=== PATIENT | female | born 1960 | race Caucasian/White ===

== ENCOUNTER 2019-09-04 09:40 | Outpatient (CLI) | payer OTHER, SELFPAY ==
--- NOTE | 2019-09-04 09:46 | EST_ITS ---
Patient Info Name: Adelaide Corrales Age: 59 years : 1960 Gender: Female Ht: 62 in Wt: 202 lbs BSA: 2.05 m2 Exam Date: 09/04/2019 10:10 AM Exam Location: [facility] Stress Patient Status: Outpatient Admit Date: 09/04/2019 Staff Ordering Physician: Govind Monreal MD Attending Provider: Govind Monreal MD Exercise Technologist: Duane Dodson RDCS, RT Exercise Physician: Angelo Huynh DO Exam Type: CA stress test treadmill Study Info A treadmill exercise stress test was performed. Summary 1. 1. Negative Gigi exercise stress test for ischemic ST changes by ECG criteria. 2. 2. Mildly reduced functional capacity, achieving 7 METs of workload. 3. 3. Appropriate HR response to exercise. 4. 4. Appropriate HR recovery at 1 minute post exercise. 5. 5. No imaging with stress testing. 6. 6. Patient informed of the above results. Protocol: Gigi Stress ECG Details Stage: REST Duration (min): 1 min : 53 sec Speed (mph): 0.0 Grade (%): 0 HR (bpm): 84 SBP (mmHg): 134 DBP (mmHg): 85 METS: --- Stage: REST Duration (min): 2 min : 4 sec Speed (mph): 0.0 Grade (%): 0 HR (bpm): 87 SBP (mmHg): 134 DBP (mmHg): 85 METS: --- Stage: STAGE 1 Duration (min): 1 min : 0 sec Speed (mph): 1.7 Grade (%): 10 HR (bpm): 109 SBP (mmHg): 134 DBP (mmHg): 85 METS: --- Stage: STAGE 1 Duration (min): 2 min : 0 sec Speed (mph): 1.7 Grade (%): 10 HR (bpm): 122 SBP (mmHg): 134 DBP (mmHg): 85 METS: --- Stage: STAGE 1 Duration (min): 3 min : 0 sec Speed (mph): 1.7 Grade (%): 10 HR (bpm): 127 SBP (mmHg): 165 DBP (mmHg): 78 METS: --- Stage: STAGE 2 Duration (min): 1 min : 0 sec Speed (mph): 2.5 Grade (%): 12 HR (bpm): 138 SBP (mmHg): 165 DBP (mmHg): 78 METS: --- Stage: STAGE 2 Duration (min): 2 min : 0 sec Speed (mph): 2.5 Grade (%): 12 HR (bpm): 144 SBP (mmHg): 186 DBP (mmHg): 85 METS: --- Stage: STAGE 2 Duration (min): 3 min : 0 sec Speed (mph): 2.5 Grade (%): 12 HR (bpm): 147 SBP (mmHg): 186 DBP (mmHg): 85 METS: --- Stage: STAGE 3 Duration (min): 0 min : 1 sec Speed (mph): 3.4 Grade (%): 14 HR (bpm): 147 SBP (mmHg): 186 DBP (mmHg): 85 METS: --- Stage: RECOVERY Duration (min): 0 min : 59 sec Speed (mph): 0.0 Grade (%): 0 HR (bpm): 126 SBP (mmHg): 203 DBP (mmHg): 77 METS: --- Stage: RECOVERY Duration (min): 1 min : 59 sec Speed (mph): 0.0 Grade (%): 0 HR (bpm): 102 SBP (mmHg): 203 DBP (mmHg): 77 METS: --- Stage: RECOVERY Duration (min): 2 min : 59 sec Speed (mph): 0.0 Grade (%): 0 HR (bpm): 98 SBP (mmHg): 169 DBP (mmHg): 79 METS: --- Stage: RECOVERY Duration (min): 3 min : 10 sec Speed (mph): 0.0 Grade (%): 0 HR (
== END 2019-09-04 09:41 | disposition home or self-care (01) ==
PROVIDERS: Visit Provider Family Medicine
DX: R06.09 Other forms of dyspnea (principal)
CPT/HCPCS: 93017

== ENCOUNTER 2021-10-20 15:32 | Emergency (ER) | payer OTHER, SELFPAY ==
--- NOTE | ~2021-10-20 | XR_ITS ---
XR hand RT min 3V DATE: 10/20/2021 16:35 INDICATION: Injury from fall. 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 No fracture or dislocation, periosteal reaction or bone destruction, erosive change or chondrocalcinosis. IMPRESSION: No fracture or dislocation Reviewed, dictated and finalized at location [facility]. IMPRESSION: No fracture or dislocation
[2021-10-20 15:51] VITALS: BP 127/66; PULSE 86; RESP 18; TEMP 37.2; O2SAT 98
--- NOTE | 2021-10-20 16:15 | ED.FALL ---
HPI - Fall General Chief Complaint: Fall Stated Complaint: head injury / fall Time Seen by Provider: 10/20/21 16:10 Source: patient, RN notes reviewed and old records reviewed Mode of arrival: ambulatory Limitations: no limitations History of Present Illness HPI Narrative: 61-year-old female accompanied by spouse presents to [facility] with complaints of injuries related to fall off of her deck approximately half an hour before arrival. Patient reports she was chasing after her dog and missed steps off of the deck falling onto concrete stone blocks. Patient tried to break her fall with her right hand has some bruising to dorsal hand near middle finger and small abrasion to pip region of 5th finger, contusion to upper lateral right abdomen no bruising or abrasions noted, bruising and swelling to right side of forehead. Patient reports no dizziness prior to fall, had not been drinking any alcohol, just missed steps. Patient denies any loss of consciousness at time of injury, patient is alert and oriented at this time, gait steady. MD complaint: fall Onset (ago): minute(s) (Half an hour before arrival) Fall from: standing Place fall occurred: home Loss of consciousness: none Prolonged down time: no Location of injury: head and abdomen (upper right) Location of injury - extremities: Right: hand Related Data Allergies Allergy/AdvReac Type Severity Reaction Status Date / Time Iodine and Iodide Containing Allergy Severe HIVES Verified 10/20/21 16:08 Produc Iodinated Contrast Media Allergy Unknown Unknown Verified 10/20/21 16:08 ioversol Allergy Unknown Unknown Verified 10/20/21 16:08 lidocaine Allergy Unknown Unknown Verified 10/20/21 16:08 Review of Systems Review of Systems: CONSTITUTIONAL: Denies fever, chills, or sweats. EYES: Denies visual changes, redness, or discharge. ENT: Denies rhinorrhea, congestion, sore throat, or otalgia. CARDIOVASCULAR: Denies chest pain, palpitations, or edema. RESPIRATORY: Denies cough or dyspnea. GASTROINTESTINAL: Denies abdominal pain, nausea, vomiting, or diarrhea. GENITOURINARY: Denies dysuria or hematuria. SKIN: Denies rash or itching. MUSCULOSKELETAL: Denies back pain, joint pain, or myalgia. NEUROLOGIC: Denies acute headache, numbness, or weakness, denies any dizziness PSYCHIATRIC: Positive history of anxiety or depression. All systems reviewed & are unremarkable except as noted in HPI and below PMFSH Past Medical History Medical History (Updated 10/20/21 @ 16:54 by Bettina Mera NP) BMI 34.0-34.9,adult BMI 36.0-36.9,adult Cervical pain COVID-19 LEE (dyspnea on exertion) Elevated glucose Screening for breast cancer Sensation disturbance of skin Sleep disturbance Surgical History Surgical History (Updated 10/20/21 @ 23:37 by Bettina Mera NP) H/O section H/O hernia repair H/O: hysterectomy Family History Family History Grandparent Family history of malignant neoplasm of breast Sibling Family history of malignant neoplasm of breast in first degree relative Father No problems noted. Mother No problems noted. Other Family history of chronic obstructive pulmonary disease Family history of malignant melanoma Family history of rheumatoid arthritis Social History Social History Alcohol intake: current Comments At time of signature, agree with nursing past medical, surgical, social and family history. There is no relevant family history pertinent to the presenting complaint Exam Narrative: GENERAL: Well-appearing, well-nourished, and in no acute distress. HEAD: Normocephalic, ecchymotic area to right forehead with some swelling. EYES: PERRLA and EOMI. no nystagmus ENT: Nares clear, no rhinorrhea or epistaxis. Mucous membranes moist.TM's normal with no drainage, throat pink with no lesions or e
== END 2021-10-20 17:01 | disposition home or self-care (01) ==
PROVIDERS: Emergency Provider Registered Nurse; PCP Family Medicine
DX: S09.90XA Unspecified injury of head, initial encounter (principal); S60.221A Contusion of right hand, initial encounter; S30.1XXA Contusion of abdominal wall, initial encounter; W17.89XA Other fall from one level to another, initial encounter; Z86.16 Personal history of COVID-19
CPT/HCPCS: 73130; 99213; G0463

== ENCOUNTER 2021-10-24 13:31 | Emergency (ER) | payer OTHER, SELFPAY ==
--- NOTE | ~2021-10-24 | XR_ITS ---
[id number] DATE: 10/24/2021 14:07 INDICATION: Right anterior lower rib pain after a fall 4 days ago TECHNIQUE: PA chest. 3 views of the right ribs. COMPARISON: None FINDINGS: No right rib fracture is noted. Diffuse osteopenia. Diffuse idiopathic skeletal hyperostosis of the thoracic spine. Normal heart size. No hilar or mediastinal enlargement. No pulmonary infiltrate or consolidation, ple ural effusion or pulmonary vascular congestion or pneumothorax.. IMPRESSION: No right rib fracture is detected Reviewed, dictated and finalized at [facility]. Reviewed, dictated and finalized at location [facility].
[2021-10-24 13:40] VITALS: BP 132/68; PULSE 91; RESP 20; TEMP 36.3; O2SAT 100
--- NOTE | 2021-10-24 14:01 | ED.GENADULT ---
HPI - General Adult General Chief complaint: Wound/Laceration Stated complaint: rt rib pain Source: patient Mode of arrival: ambulatory Limitations: no limitations History of Present Illness HPI narrative: Patient presents for evaluation of right-sided chest wall pain. She indicates on Tuesday of this week she fell off her deck and landed on the ground. She hit her head but did not have a loss of consciousness. She is not on blood thinners. No vomiting since episode. She was evaluated here and had an x ray performed of her right hand which was negative. Since that time she has noted improvement in her right hand pain. She has bruising to the right hand. She also reports bruising to the right lateral thigh without significant pain. She also has right periorbital bruising without significant pain. Denies visual disturbance. She states she has developed right chest wall pain that she rates as 11 on scale of 1-10. She states that deep inspiration makes her symptoms worse. She denies shortness of breath per se. No abdominal pain, hematuria or blood in stool. She has a chronic nervous cough that is unchanged. No additional complaints or concerns. Related Data Allergies Allergy/AdvReac Type Severity Reaction Status Date / Time Iodine and Iodide Containing Allergy Severe HIVES Verified 10/24/21 14:00 Produc Iodinated Contrast Media Allergy Unknown Unknown Verified 10/24/21 14:00 ioversol Allergy Unknown Unknown Verified 10/24/21 14:00 lidocaine Allergy Unknown Unknown Verified 10/24/21 14:00 Review of Systems Review of Systems: CONSTITUTIONAL: Denies fever, chills, or sweats. EYES: Denies visual changes, redness, or discharge. ENT: Denies rhinorrhea, congestion, sore throat, or otalgia. CARDIOVASCULAR:Reports right anterior chest wall pain. Denies chest pain per se. Denies palpitations, or edema. RESPIRATORY: Denies cough or dyspnea. GASTROINTESTINAL: Denies abdominal pain, nausea, vomiting, or diarrhea. GENITOURINARY: Denies dysuria or hematuria. SKIN: Reports bruising to right hand, right thigh and right periorbital region. MUSCULOSKELETAL: Reports right anterior chest wall pain. NEUROLOGIC: Denies headache, numbness, dizziness, or weakness. PSYCHIATRIC: Denies anxiety or depression. [facility] Past Medical History Medical History (Updated 10/24/21 @ 14:18 by Vincent Duggan, [employer], ) BMI 34.0-34.9,adult BMI 36.0-36.9,adult Cervical pain Contusion of rib on right side COVID-19 LEE (dyspnea on exertion) Elevated glucose Fibromyalgia Phantom pain Screening for breast cancer Sensation disturbance of skin Sleep disturbance Surgical History Surgical History H/O section H/O hernia repair H/O: hysterectomy Family History Family History Grandparent Family history of malignant neoplasm of breast Sibling Family history of malignant neoplasm of breast in first degree relative Father No problems noted. Mother No problems noted. Other Family history of chronic obstructive pulmonary disease Family history of malignant melanoma Family history of rheumatoid arthritis Social History Social History Smoking status: Never smoker Alcohol intake: current Substance use: never Living arrangements: with family Gender identity (if verbalized by the patient): Female Sexual Orientation (if Verbalized by the Patient): Straight or Heterosexual Spiritual care concerns: No Exam Narrative: GENERAL: Well-appearing, well-nourished, and in no acute distress. HEAD: Normocephalic EYES: PERRLA and EOMI. No entrapment ENT: Nares clear, no rhinorrhea or epistaxis. Mucous membranes moist. Oropharynx without tonsillar hypertrophy exudate or other lesions. Bilateral TMs pearly bailon non
== END 2021-10-24 14:21 | disposition home or self-care (01) ==
PROVIDERS: Emergency Provider Nurse Practitioner; PCP Family Medicine
DX: S20.211D Contusion of right front wall of thorax, subsequent encounter (principal); W17.89XD Other fall from one level to another, subsequent encounter
CPT/HCPCS: 71101; 99213; G0463

== ENCOUNTER 2023-03-22 09:01 | Outpatient (CLI) | payer OTHER, SELFPAY ==
--- NOTE | 2023-03-22 11:30 | NEURO_ITS ---
Impression: # Complains of decreased sensation anteriorly on both lower extremities between knees and ankles. # Normal Nerve Conduction Study including F-waves bilaterally. # Normal needle/EMG exam. # Clinical correlation recommended. Nerve Conduction Studies Anti Sensory Summary Table Stim Site NR Peak (ms) P-T Amp (?V) Site1 Site2 Delta-P (ms) Dist (cm) Demetrio (m/s) Left Sup Fibular Anti Sensory (Ant Lat Mall) 14 cm 3.3 11.7 14 cm Ant Lat Mall 3.3 16.0 48 Right Sup Fibular Anti Sensory (Ant Lat Mall) 14 cm 3.4 7.4 14 cm Ant Lat Mall 3.4 16.0 47 Left Sural Anti Sensory (Lat Mall) Calf 3.8 32.1 Calf Lat Mall 3.8 16.0 42 Right Sural Anti Sensory (Lat Mall) Calf 3.9 5.5 Calf Lat Mall 3.9 16.0 41 Motor Summary Table Stim Site NR Onset (ms) O-P Amp (mV) Site1 Site2 Delta-0 (ms) Dist (cm) Demetrio (m/s) Left Peroneal Motor (Vastus Med) Ankle 4.6 2.1 Popit Ankle 7.9 38.0 48 Popit 12.5 1.7 Right Peroneal Motor (Vastus Med) Ankle 4.3 3.5 Popit Ankle 7.3 34.0 47 Popit 11.6 3.0 Left Tibial Motor (Abd Caballero Brev) Ankle 4.7 4.8 Knee Ankle 8.5 39.0 46 Knee 13.2 4.0 Right Tibial Motor (Abd Caballero Brev) Ankle 4.5 6.5 Knee Ankle 7.4 38.0 51 Knee 11.9 0.9 F Wave Studies NR F-Lat (ms) L-R F-Lat (ms) Left Peroneal (Mrkrs) (EDB) 47.31 0.43 Right Peroneal (Mrkrs) (EDB) 46.88 0.43 Left Tibial (Mrkrs) (Abd Hallucis) 47.51 0.62 Right Tibial (Mrkrs) (Abd Hallucis) 46.88 0.62 EMG Side Muscle Nerve Root Ins Act Fibs Amp Dur Recrt Comment Right AntTibialis Dp Br Fibular L4-5 Nml Nml Nml Nml Nml Right Gastroc Tibial S1-2 Nml Nml Nml Nml Nml Right Fibularis Long Sup Br Fibular L5-S1 Nml Nml Nml Nml Nml Right Flex Dig Long Tibial L5-S2 Nml Nml Nml Nml Nml Right Ext Dig Brev Dp Br Fibular L5, S1 Nml Nml Nml Nml Nml Left AntTibialis Dp Br Fibular L4-5 Nml Nml Nml Nml Nml Left Gastroc Tibial S1-2 Nml Nml Nml Nml Nml Left Fibularis Long Sup Br Fibular L5-S1 Nml Nml Nml Nml Nml Left Flex Dig Long Tibial L5-S2 Nml Nml Nml Nml Nml Left Ext Dig Brev Dp Br Fibular L5, S1 Nml Nml Nml Nml Nml Right QuadratusFem QuadFemoris L4-5, S1 Nml Nml Nml Nml Nml Left QuadratusFem QuadFemoris L4-5, S1 Nml Nml Nml Nml Nml MTDD
== END 2023-03-22 09:02 | disposition home or self-care (01) ==
PROVIDERS: PCP Family Medicine; Visit Provider Family Medicine
DX: R20.9 Unspecified disturbances of skin sensation (principal)
CPT/HCPCS: 95886; 95910